=== PATIENT | male | born 1975 | race Caucasian/White ===

== ENCOUNTER 2024-02-13 13:12 | Inpatient (IN) ==
--- NOTE | 2024-02-13 13:59 | EKG ---
Test Reason : preop Blood Pressure : */* mmHG Vent. Rate : 94 BPM Atrial Rate : 94 BPM P-R Int : 134 ms QRS Dur : 84 ms QT Int : 354 ms P-R-T Axes : 69 79 66 degrees QTc Int : 442 ms Normal sinus rhythm Possible Anterior infarct (cited on or before 04-NOV-2022) Abnormal ECG When compared with ECG of 04-NOV-2022 15:31, No significant change was found Confirmed by Salty Dawn ([id number]) on 02/20/2024 9:28:26 AM Referred By: Confirmed By: Salty Dawn
[2024-02-13] MEDS: PHARMACY CONSULT - VANCOMYCIN XX SCH (14:00)
[2024-02-13 15:31] VITALS: BMI 35.4
[2024-02-13] MEDS: VANCOMYCIN IV *PREMIX 1 G/200 ML BAG 1 G/200 ML PIGGYBACK IV ONE ×2 (16:34→19:33)
[2024-02-13] MEDS: PERCOCET TAB 5/325 MG PO PRN (16:35)
[2024-02-13 17:59] LABS: ALANINE AMINOTRANSFERASE 24 Units/L (12-78); ALBUMIN 3.3 g/dL (3.4-5.0); ALKALINE PHOSPHATASE 109 Units/L (46-116); ASPARTATE AMINO TRANSFERASE 19 Units/L (15-37); BLOOD UREA NITROGEN 18 mg/dL (7-18); CALCIUM 8.9 mg/dL (8.5-10.1); CARBON DIOXIDE 27.5 mmol/L (21-32); COR CA(FOR HYPOALB) 9.5 mg/dL (8.5-10.1); CREATININE 0.68 mg/dL (0.70-1.30); GLUCOSE 136 mg/dL (65-99); eGFR NON BLACK RACES > 60 (>60)
[2024-02-13] MEDS: ZOSYN VIAL 3.375 GRAMS 3.375 G in NS 100 ML IV 100 ML IV SCH (17:59)
[2024-02-13 18:31] LABS: BASOPHILS # (AUTO) 0.2 X10^3/uL (0.0-0.1); BASOPHILS % (AUTO) 1.9 % (0.2-1.0); EOSINOPHILS # (AUTO) 0.2 x10^3/uL (0.0-0.2); EOSINOPHILS % (AUTO) 1.9 % (0.9-2.9); HEMATOCRIT 42.8 % (42.0-54.0); HEMOGLOBIN 14.7 g/dL (13.5-18.0); LYMPHOCYTES # (AUTO) 3.1 X10^3/uL (1.3-2.9); LYMPHOCYTES % (AUTO) 25.2 % (21.0-51.0); MEAN CORPUSCULAR HEMOGLOBIN 30.7 pg (27.0-34.0); MEAN CORPUSCULAR HGB CONC 34.3 g/dL (33.0-35.0); MEAN CORPUSCULAR VOLUME 89.6 fL (80.0-100.0); MEAN PLATELET VOLUME 7.5 fL (7.4-11.0); MONOCYTES # (AUTO) 0.9 x10^3/uL (0.3-0.8); MONOCYTES % (AUTO) 7.3 % (0.0-13.0); NEUTROPHILS # (AUTO) 7.8 x10^3/uL (2.2-4.8); NEUTROPHILS % (AUTO) 63.7 % (42.0-75.0); PLATELET COUNT 343 X10^3/uL (150.0-450.0); RED BLOOD COUNT 4.77 X10^6/uL (4.7-6.0); RED CELL DISTRIBUTION WIDTH 13.9 % (11.6-16.5); WHITE BLOOD COUNT 12.3 X10^3/uL (3.6-10.0)
[2024-02-13 18:45] LABS: CHLORIDE 100 mmol/L (98-107); COR NA(FOR HYPERGLY) 139 mmol/L (136-145); POTASSIUM 4.4 mmol/L (3.5-5.1); SODIUM 138 mmol/L (136-145)
[2024-02-13] MEDS: SNACK - Diabetic Appropriate PO SCH (20:36)
[2024-02-13] MEDS: NS 250 ML IV 25 ML IV PRN (22:35)
[2024-02-14 06:29] LABS: BASOPHILS # (AUTO) 0.1 X10^3/uL (0.0-0.1); BASOPHILS % (AUTO) 1.1 % (0.2-1.0); EOSINOPHILS # (AUTO) 0.3 x10^3/uL (0.0-0.2); EOSINOPHILS % (AUTO) 2.6 % (0.9-2.9); HEMATOCRIT 41.2 % (42.0-54.0); HEMOGLOBIN 14.3 g/dL (13.5-18.0); LYMPHOCYTES # (AUTO) 2.3 X10^3/uL (1.3-2.9); LYMPHOCYTES % (AUTO) 22.3 % (21.0-51.0); MEAN CORPUSCULAR HEMOGLOBIN 30.9 pg (27.0-34.0); MEAN CORPUSCULAR HGB CONC 34.8 g/dL (33.0-35.0); MEAN CORPUSCULAR VOLUME 88.7 fL (80.0-100.0); MEAN PLATELET VOLUME 7.6 fL (7.4-11.0); MONOCYTES # (AUTO) 0.8 x10^3/uL (0.3-0.8); MONOCYTES % (AUTO) 8.1 % (0.0-13.0); NEUTROPHILS # (AUTO) 6.7 x10^3/uL (2.2-4.8); NEUTROPHILS % (AUTO) 65.9 % (42.0-75.0); PLATELET COUNT 310 X10^3/uL (150.0-450.0); RED BLOOD COUNT 4.64 X10^6/uL (4.7-6.0); RED CELL DISTRIBUTION WIDTH 13.7 % (11.6-16.5); WHITE BLOOD COUNT 10.2 X10^3/uL (3.6-10.0)
[2024-02-14 06:31] LABS: BLOOD UREA NITROGEN 15 mg/dL (7-18); CALCIUM 8.7 mg/dL (8.5-10.1); CARBON DIOXIDE 28.8 mmol/L (21-32); CHLORIDE 101 mmol/L (98-107); COR NA(FOR HYPERGLY) 141 mmol/L (136-145); CREATININE 1.12 mg/dL (0.70-1.30); GLUCOSE 139 mg/dL (65-99); POTASSIUM 3.9 mmol/L (3.5-5.1); SODIUM 140 mmol/L (136-145); eGFR NON BLACK RACES > 60 (>60)
[2024-02-14 06:46] LABS: ALANINE AMINOTRANSFERASE 28 Units/L (12-78); ALKALINE PHOSPHATASE 97 Units/L (46-116); ASPARTATE AMINO TRANSFERASE 17 Units/L (15-37); COR CA(FOR HYPOALB) 9.5 mg/dL (8.5-10.1); TOTAL PROTEIN 7.3 g/dL (6.4-8.2)
[2024-02-14] MEDS: PriLOSEC PO SCH (08:24)
--- NOTE | 2024-02-14 08:24 | RAD ---
EXAMINATION:CHEST, 1 VIEWHISTORY:PRE-OP ; .COMPARISON STUDY:11/04/2022TECHNIQUE:A single view of the chest was obtained.FINDINGS:. Heart size is normal. No acute infiltrates. There is no pneumothorax. Hilar and mediastinal structures and bony structures are unremarkable. .IMPRESSION:No acute process in the chest.THIS IS AN ELECTRONICALLY VERIFIED FINAL JHLOYK1002/14/2024 8:21 AM - Electronically signed by Kyle Garcia MD
[2024-02-14] MEDS: ZESTRIL TAB 10 MG PO SCH (08:25)
[2024-02-14] MEDS: HYDROCHLOROTHIAZIDE 25 MG TAB PO SCH (08:25)
[2024-02-14] MEDS: VANCOMYCIN IV *PREMIX 1.75 G/350 ML BAG 1.75 G/350 ML PIGGYBACK IV SCH (10:09)
--- NOTE | 2024-02-14 16:06 | VAS ---
EXAM:LOWER EXT ARTERIALHISTORY:R/O PVD; PVD, SURGERY RT FOOT WOUND HEALINGCOMPARISON:NoneTECHNIQUE:20 images made by the catering barista. Lewis scale and color flow Doppler images of the right and left lower extremity arterial system were obtained. Spectral waveform analysis was performed. Velocities are measured in centimeters per second.FINDINGS:right lower extremity:BAR HOST: PSV: 163Waveform: triphasicSFA proximal: PSV: 119Waveform: MonophasicSFA middle: PSV: 109Waveform: MonophasicSFA distal: PSV: 130Waveform: MonophasicPop: PSV: 64 and 84Waveform: MonophasicPTA: PSV: 19, 9, 20Waveform: triphasicDPA: PSV: Not evaluatedWaveform: Not evaluatedDPA was not evaluated due to the presence of a bandage from the patient's surgery.There is no occlusion. Velocities suggest no hemodynamically significant focal stenosis. The waveform suggest diffuse arterial sclerosis.left lower extremity:BAR HOST: PSV: 134Waveform: triphasicSFA proximal: PSV: 69Waveform: BiphasicSFA middle: PSV: 70Waveform: BiphasicSFA distal: PSV: 110Waveform: triphasicPop: PSV: 69 and 114Waveform: triphasicPTA: PSV: 38, 35, 61Waveform: MonophasicDPA: PSV: 86Waveform: MonophasicThere is no occlusion. No evidence for hemodynamically significant focal stenosis. The waveform suggest diffuse arterial sclerosis in the COURIER DRIVER and DPA.IMPRESSION:1. Arterial sclerosis without occlusion or focal stenosisTHIS IS AN ELECTRONICALLY VERIFIED FINAL ZEOSID3602/14/2024 4:02 PM - Electronically signed by Temo Grant MD
[2024-02-15] MEDS: NovoLIN R (or HumuLIN R) SUBCUT PRN (05:44)
[2024-02-15 06:11] LABS: BASOPHILS # (AUTO) 0.1 X10^3/uL (0.0-0.1); BASOPHILS % (AUTO) 0.5 % (0.2-1.0); EOSINOPHILS # (AUTO) 0.2 x10^3/uL (0.0-0.2); EOSINOPHILS % (AUTO) 2.1 % (0.9-2.9); HEMATOCRIT 40.7 % (42.0-54.0); HEMOGLOBIN 14.2 g/dL (13.5-18.0); LYMPHOCYTES # (AUTO) 1.9 X10^3/uL (1.3-2.9); LYMPHOCYTES % (AUTO) 19.1 % (21.0-51.0); MEAN CORPUSCULAR HEMOGLOBIN 30.8 pg (27.0-34.0); MEAN CORPUSCULAR HGB CONC 34.9 g/dL (33.0-35.0); MEAN CORPUSCULAR VOLUME 88.3 fL (80.0-100.0); MEAN PLATELET VOLUME 7.4 fL (7.4-11.0); MONOCYTES # (AUTO) 0.8 x10^3/uL (0.3-0.8); NEUTROPHILS # (AUTO) 6.9 x10^3/uL (2.2-4.8); NEUTROPHILS % (AUTO) 70.3 % (42.0-75.0); PLATELET COUNT 322 X10^3/uL (150.0-450.0); RED BLOOD COUNT 4.61 X10^6/uL (4.7-6.0); WHITE BLOOD COUNT 9.8 X10^3/uL (3.6-10.0)
[2024-02-15 06:30] LABS: ALANINE AMINOTRANSFERASE 25 Units/L (12-78); ALKALINE PHOSPHATASE 94 Units/L (46-116); ASPARTATE AMINO TRANSFERASE 15 Units/L (15-37); BLOOD UREA NITROGEN 16 mg/dL (7-18); CALCIUM 8.8 mg/dL (8.5-10.1); CARBON DIOXIDE 28.1 mmol/L (21-32); CHLORIDE 102 mmol/L (98-107); COR CA(FOR HYPOALB) 9.6 mg/dL (8.5-10.1); COR NA(FOR HYPERGLY) 140 mmol/L (136-145); CREATININE 0.97 mg/dL (0.70-1.30); GLUCOSE 194 mg/dL (65-99); SODIUM 138 mmol/L (136-145); TOTAL PROTEIN 7.3 g/dL (6.4-8.2); eGFR NON BLACK RACES > 60 (>60)
[2024-02-15] MEDS ORDERED: PHARMACY COMMENT IV SCH (08:30)
[2024-02-15 08:37] LABS: CREATININE 0.88 mg/dL (0.70-1.30); VANCOMYCIN,TROUGH 12.9 ug/mL (15-20)
[2024-02-15] MEDS: HIBICLENS WASH EXT ONE (09:38)
[2024-02-15] MEDS: ACTOS PO SCH (10:15)
[2024-02-15] MEDS: VANCOMYCIN IV *PREMIX 2 G/400 ML BAG 2 G/400 ML PIGGYBACK IV SCH (10:15)
[2024-02-15] MEDS ORDERED: FENTANYL VIAL INJ 100 mcg ONE (12:41)
[2024-02-15] MEDS ORDERED: REGLAN INJ 10 MG VIAL ONE (12:41)
[2024-02-15] MEDS ORDERED: VERSED ONE (12:41)
[2024-02-15] MEDS ORDERED: ZOFRAN INJ 4 MG VIAL ONE (12:41)
[2024-02-15] MEDS ORDERED: PEPCID 20 MG VIAL ONE (12:41)
[2024-02-15] MEDS ORDERED: DIPRIVAN VIAL 0 ML ONE (12:41)
[2024-02-15] MEDS: BETADINE SOLN ONE (12:53)
[2024-02-15] MEDS: NS 1,000 ML IV 1,000 ML ONE (13:00)
[2024-02-15] MEDS: ANCEF VIAL 1 GRAM ONE (13:12)
[2024-02-15] MEDS: MARCAINE 0.25% INJ ONE (13:19)
[2024-02-15 16:01] VITALS: RESP 20
[2024-02-15 16:45] VITALS: BP 135/76; PULSE 92; TEMP 97.9; O2SAT 100
[2024-02-15] MEDS ORDERED: GLUCOPHAGE XR 24-HR PO SCH (21:00)
--- NOTE | 2024-02-16 08:16 | MRI ---
EXAM:MRI right foot without IV contrastHISTORY:diabetic wound to rt. foot -COMPARISON:None.TECHNIQUE:MRI of the right foot without IV contrast is performed using standard sequences in multiple planes.FINDINGS:The 1st toe has been previously amputated. There is edema within the subcutaneous soft tissues in the deep muscular soft tissues in the foot. This could be cellulitis. Edema spares the plantar soft tissues laterally in the forefoot. There is irregularity of the skin a laterally at the level of the base of the 5th metatarsal with associated edema. This is likely cellulitis and skin ulceration. No soft tissue abscess is seen.There is edema within the shaft and distal head of the 1st metatarsal. There is edema in the distal shaft and head of the 2nd metatarsal. These are probable areas of osteomyelitis. There is probable osteomyelitis in the 2nd proximal phalanx, also. Middle and distal phalanges in the 2nd toe not well evaluated. The 3rd-5th phalanges are poorly evaluated due to inhomogeneous fat saturation but do not appear to have edema on the single STIR series.There is edema in the base of 5th metatarsal adjacent to the region of the suspected skin ulceration. This is probable osteomyelitis. Faint edema is seen in the cuboid bone near the articulation with the calcaneus. This is probably arthritic changes rather than osteomyelitis in the cuboid bone.IMPRESSION:Probable cellulitis in the foot with skin ulceration laterally near the base of 5th metatarsal. There is underlying osteomyelitis in the base of the 5th metatarsal.Other areas of osteomyelitis are suspected within the distal head of the 1st metatarsal and distal shaft and head of 2nd metatarsal. Probable osteomyelitis is seen in the 2nd proximal phalanx, also. Other phalanges are not well evaluated on this study.THIS IS AN ELECTRONICALLY VERIFIED FINAL [id number]/16/2024 8:03 AM - Electronically signed by Kyle Christopher MD
--- NOTE | 2024-02-16 08:50 | DR.CONSULT ---
CONSULT Consultation for Day of: Date: 02/14/24 Chief Complaint Chief Complaint: right foot infection Allergies Allergies Allergy/AdvReac Type Severity Reaction Status Date / Time hydromorphone [From Dilaudid] AdvReac Severe NAUSEA Verified 11/28/22 11:58 History of Present Illness History of Present Illness: Patient presented to Dr. Mckeon office on 02/13/24 with wound to lateral fifth metatarsal base on right foot and worsening signs of infection. High concern for osteomyelitis. Patient was instructed to head to hospital. I called in an order for an MRI which has not been obtained yet. Past Medical History Past Medical History: Diabetes, Hypertension and [place] Past Surgical History Surgical History: Tonsillectomy and Other Family History Family Medical History: [place] and Hypertension Social History Does patient currently use any type of tobacco product: No Type of Tobacco Use: None Does any household member use tobacco: No Alcohol Use: None Drug Use: None Medications Home Medications: hydromorphone [From Dilaudid] Adverse Reaction (Severe, Verified 11/28/22 11:58) NAUSEA CONTINUE taking the following medications rosuvastatin 5 mg tablet 5 mg PO QPM cholesterol 02/13/24 [History] tirzepatide 15 mg/0.5 mL subcutaneous pen injector (Mounjaro) 15 mg subcut QWEEK 02/13/24 [History] Review of Systems Constitutional: See HPI Cardiovascular: Other Musculoskeletal: Other Skin: Wound Neurological: Other Physical Exam Vital Signs: Vital Signs Temperature 98.2 F Pulse Rate [Right Radial] 93 Respiratory Rate 20 Respiratory Rate 20 Respiratory Rate 20 Blood Pressure [Right Arm] 133/80 O2 Sat by Pulse Oximetry 98 Oriented: Normal, Time and Person Cardiovascular: Other (Sensation is decreased to light touch. DP and PT pulses briskly palpable on the right foot. CFT WNL to all digits. ) Skin: Wound (Ulceration to lateral fifth metatarsal base with eschar cap. Surrounding erythema noted. Underlying boggyness. No purulence expressed. Wound measures 1 cm x 1 cm x 0.3 cm.) Musculoskeletal: Foot (History of hallux amputation, right foot. Overall, no underlying deformity that would cause the lateral 5th metatarsal wound. ) Plan (1) Chronic multifocal osteomyelitis of right foot: Status: Acute Plan: - Patient likely has osteomyelitis of the right fifth metatarsal base. - MRI Pending. Spoke with radiology to obtain MRI. They will. - Patient has not had any recent vascular studies done in EMR and when inspecting clinic EMR. Will obtain arterial duplex of the right leg. - Denies smoking. - History of diabetes and amputation, he believes his last A1C was controlled but is unsure. We will order a new A1C. - Patient is scheduled for surgery tomorrow consisting of incision and drainage right foot extent of incision and drainage will be based on MRI findings. Patient has chronic infection likely osteomyelitis. Has history of amputation on the right foot. These along with the infection and diabetes puts him at high risk for limb loss.
[2024-02-16] MEDS ORDERED: PHARMACY COMMENT IV NR (20:00)
== END 2024-02-15 16:00 | disposition home or self-care (01) | DRG 464 ==
LOC: MED/SURG → OBSVTOIN 13:18
PROVIDERS: ADMIT Obstetrics & Gynecology Obstetrics; ATTEND Obstetrics & Gynecology Obstetrics
DX: E11.621 Type 2 diabetes mellitus with foot ulcer; L02.611 Cutaneous abscess of right foot; E11.42 Type 2 diabetes mellitus with diabetic polyneuropathy; B95.61 Methicillin susceptible Staphylococcus aureus infection as the cause of diseases classified elsewhere; Z01.810 Encounter for preprocedural cardiovascular examination; E11.65 Type 2 diabetes mellitus with hyperglycemia; R94.31 Abnormal electrocardiogram [ECG] [EKG]; B95.2 Enterococcus as the cause of diseases classified elsewhere; I10 Essential (primary) hypertension; M86.371 Chronic multifocal osteomyelitis, right ankle and foot; B95.5 Unspecified streptococcus as the cause of diseases classified elsewhere